=== PATIENT | female | born 1995 | race Caucasian/White ===

== ENCOUNTER 2018-02-26 06:51 | Emergency (ER) | payer MEDICAID ==
[~2018-02-26] VITALS: Ht 170.2 cm; Wt 75.0 kg
[2018-02-26 07:04] VITALS: BP 152/72; PULSE 93; RESP 18; TEMP 98.4; O2SAT 98
--- NOTE | 2018-02-26 07:16 | PD ---
HPI Chief Complaint: Bite or Sting Time Seen by Provider: 07:15 Travel History International Travel<30 days: No Contact w/Intl Traveler<30days: No Traveled to known affect area: No History of Present Illness HPI 22-year-old female presents for evaluation of cat bites. She reports that prior to arrival she was picking up stray cats and they bit her and scratched her on the thumbs, index fingers and left thigh. The catheter currently in a crate which the patient and her friend but the cats in after the incident. The patient's last tetanus vaccination is unknown. She reports mild pain associate with the injuries, dull, worse with palpation, no alleviating factors. No other complaints. PFSH Past Medical History ?: Not LMP: about 2 weeks ago Social History Alcohol Use: Yes Tobacco Use: No Allergies-Medications (Allergen,Severity, Reaction): Coded Allergies: Penicillins (Verified Allergy, Severe, Anaphylaxis, 02/26/18) Reported Meds & Prescriptions Reported Meds & Active Scripts Active Flagyl (Metronidazole) 500 Mg Tab 500 Mg PO TID 5 Days Doxycycline Hyclate 100 Mg Cap 100 Mg PO BID 5 Days Reported Prozac (Fluoxetine HCl) 20 Mg Cap 20 Mg PO DAILY Review of Systems General / Constitutional: No: Fever, Chills Musculoskeletal: No: Limited ROM Skin: Positive Other (Puncture wound, cat bite, pain) Neurologic: No: Paresthesia Physical Exam Narrative GENERAL: Well-developed well-nourished female no acute distress SKIN: Warm and dry. Small puncture wounds noted to the finger pads of the right and left thumb. Small abrasion to the anterior left thigh. CARDIOVASCULAR: Regular rate and rhythm. No murmur appreciated. RESPIRATORY: No accessory muscle use. Clear to auscultation. Breath sounds equal bilaterally. MUSCULOSKELETAL: No obvious deformities. No clubbing. No cyanosis. No edema. Data Data Last Documented VS Vital Signs Date Time Temp Pulse Resp B/P (MAP) Pulse Ox O2 Delivery O2 Flow Rate FiO2 02/26/18 07:04 98.4 93 18 152/72 (98) 98 Orders Orders Metronidazole (Flagyl) (02/26/18 07:30) Doxycycline (Vibramycin) (02/26/18 07:30) Finger ([id number]) (02/26/18 ) Finger ([id number]) (02/26/18 ) Tetanus/Diphtheria Tox Adult (Tetanus/Di (02/26/18 07:30) MDM Medical Decision Making Medical Screen Exam Complete: Yes Emergency Medical Condition: Yes Medical Record Reviewed: Yes Differential Diagnosis Cat bite, puncture wound, laceration, foreign body, open fracture Narrative Course X-ray imaging reveals no foreign bodies. The patient is allergic to penicillin , she will be given doxycycline and Flagyl. She will be discharged with prescriptions for the same. She will fill out and will control paperwork so that the stray animals can be monitored for 10 days to avoid the need for rabies vaccination. Diagnosis Primary Impression: Cat bite Additional Instructions: Wash the wounds daily with soap and water and apply antibiotic cream and clean bandages. Medication as prescribed. As discussed, contact animal control in order to have the animals quarantine for 10 days to avoid the need for rabies vaccination. Med/Other Pt SpecificInfo: Prescription(s) given Scripts Metronidazole (Flagyl) 500 Mg Tab 500 MG PO TID for Infection for 5 Days, TAB 0 Refills Prov: Delmer Sanchez MD 02/26/18 Doxycycline Hyclate (Doxycycline Hyclate) 100 Mg Cap 100 MG PO BID for Infection for 5 Days, #10 CAP 0 Refills Prov: Delmer Sanchez MD 02/26/18 Disposition: 01 DISCHARGE HOME Condition: Stable Quinton Velazquez February 26, 2018 07:16
[2018-02-26] MEDS ORDERED: PROZ20CA11 PO (07:24)
[2018-02-26] MEDS ORDERED: DOXYCYCLINE HYCLATE 100 MG CAP PO ONE (07:30)
[2018-02-26] MEDS ORDERED: TETANUS/DIPHTHERIA TOXOID ADULT 0.5 ML VIAL IM ONE (07:30)
[2018-02-26] MEDS ORDERED: metroNIDAZOLE 500 MG TAB PO ONE (07:30)
[2018-02-26] MEDS ORDERED: DOXY100C PO (07:53)
[2018-02-26] MEDS ORDERED: METR-1 PO (07:53)
--- NOTE | 2018-02-26 07:57 | RADRPT ---
EXAM DATE: 02/26/2018 7:52 AM EDT AGE/SEX: 22 years / Female INDICATIONS: Left thumb puncture, bite from feral kitten. CLINICAL DATA: This is the patient's initial encounter. Patient reports that signs and symptoms have been present for 1 day and indicates a pain score of 0/10. MEDICAL/SURGICAL HISTORY: Asthma. None. COMPARISON: No prior [facility] exams available for comparison. FINDINGS: Bony structures are intact and in normal alignment. Joints are intact without dislocation or signifi cant arthropathy. Osseous density is normal. Soft tissues are unremarkable. No radiopaque foreign bodies seen. CONCLUSION: 1. No radiopaque foreign body or acute fracture. Electronically signed by: Olegario Caldwell MD 02/26/2018 7:56 AM EDT
--- NOTE | 2018-02-26 07:58 | RADRPT ---
EXAM DATE: 02/26/2018 7:55 AM EDT AGE/SEX: 22 years / Female INDICATIONS: Right thumb puncture, bite from feral kitten. CLINICAL DATA: This is the patient's initial encounter. Patient reports that signs and symptoms have been present for 1 day and indicates a pain score of 0/10. MEDICAL/SURGICAL HISTORY: Asthma. None. COMPARISON: No prior [facility] exams available for comparison. FINDINGS: Bony structures are intact and in normal alignment. Joints are intact without dislocation or signifi cant arthropathy. Osseous density is normal. Soft tissues are unremarkable. No radiopaque foreign bodies seen. CONCLUSION: 1. No radiopaque foreign body or acute fracture. Electronically signed by: Olegario Caldwell MD 02/26/2018 7:57 AM EDT
== END 2018-02-26 08:43 | disposition home or self-care (01) ==
LOC: NEPD 06:51
DX: S61.051A Open bite of right thumb without damage to nail, initial encounter (principal); S61.052A Open bite of left thumb without damage to nail, initial encounter; W55.01XA Bitten by cat, initial encounter; Z23 Encounter for immunization
CPT/HCPCS: 73140; 90471; 90714